=== PATIENT | male | born 1960 | race Caucasian/White ===

== ENCOUNTER 2021-02-09 12:44 | Emergency (ER) | payer OTHER, SELFPAY ==
[2021-02-09 12:53] VITALS: BP 131/81; PULSE 99; RESP 16; TEMP 36.8; O2SAT 95
--- NOTE | 2021-02-09 13:28 | ED.GENADULT ---
HPI - General Adult General Chief complaint: Ear Stated complaint: Sore Throat,Ear Pain Source: patient Mode of arrival: ambulatory Limitations: no limitations History of Present Illness HPI narrative: Patient is a 60-year-old male who presents to the [facility] with history pertinent for hypertension, hyperlipidemia, HIV, and diabetes mellitus for evaluation of right ear pain that began approximately 2 days ago. Additionally, patient reports left ear is draining goopy drainage, sore throat, and right watery eye. Sudafed, Tylenol, salt water gargles, and peroxide rinses and right ear provides mild to moderate relief. Pain increases with the use of hearing aids. Denies known exposure to sick contacts. Patient is vaccinated against Covid. Related Data Home Medications Medication Instructions Recorded Confirmed allopurinol 100 mg PO DAILY 02/09/21 02/09/21 atorvastatin 10 mg PO DAILY 02/09/21 02/09/21 cyclobenzaprine 5 mg PO DAILY 02/09/21 02/09/21 gabapentin 300 mg PO DAILY 02/09/21 02/09/21 hydralazine 25 mg PO DAILY 02/09/21 02/09/21 hydrocortisone acetate 25 mg RECTAL DAILY 02/09/21 02/09/21 olmesartan-hydrochlorothiazide 1 tablet PO DAILY 02/09/21 02/09/21 semaglutide [Ozempic] 2 mg SUBCUT DAILY 02/09/21 02/09/21 Allergies Allergy/AdvReac Type Severity Reaction Status Date / Time Sulfa (Sulfonamide Allergy Rash Verified 02/09/21 13:03 Antibiotics) Review of Systems Review of Systems: Pertinent negatives fever, chills, sweats, change in appetite, poor p.o. intake, malaise, headache, rhinorrhea, sinus problems, tinnitus, vertigo, lightheadedness, hearing loss, muffled hearing, drooling, difficulty swallowing, nausea, vomiting, vision changes, eye erythema/drainage/matting, cough, shortness of breath, lymphadenopathy, chest pain, heart palpitations, and heart murmur. [facility] Past Medical History Medical History (Updated 02/09/21 @ 13:43 by Facundo Curran, BACK SEWER, BC) Diabetes mellitus type 2 in nonobese HIV (human immunodeficiency virus infection) Hyperlipidemia Hypertension Comments I have reviewed and agree with the patient's past medical, surgical, social, and family hx as documented by the RN. There is no relevant family history pertinent to the presenting complaint. Exam Narrative: GENERAL: Well-appearing, well-nourished, and in no acute distress. HEAD: Normocephalic, atraumatic. No sinus tenderness or facial swelling appreciated. EYES: PERRLA and EOMI. No evidence of erythema, swelling, or drainage. ENT: Right TM bulging with marked erythema. Moderate amount of purulent fluid noted to right ear canal. Bilateral external ears. Left TM and left ear canal normal. No TM perforation. Nares clear, no rhinorrhea or epistaxis. Bilateral turbinates without erythema/ swelling. Mucous membranes moist and pink. Uvula is midline without erythema and swelling. No evidence of petechial rash, cobblestoning, lesions, ulcers, erythema, swelling, exudates, peritonsillar abscess, tenting, or drooling. Breath odor and voice normal. NECK: Supple. No Lymphadenopathy or nuchal rigidity appreciated. CHEST: Bilateral lung rogers are clear to auscultation. No respiratory distress. No evidence of cough or pleuritic cp upon examination. HEART: Regular rate and rhythm. No murmur, gallop, or rub heard. EXTREMITIES: Normal range of motion. No edema. SKIN: Warm, dry, no rash. NEURO: No focal deficits. Alert and oriented x3. Course Vital Signs Vital signs: Vital Signs Temperature 98.2 F 02/09/21 12:53 Pulse Rate 99 02/09/21 12:53 Respiratory Rate 16 02/09/21 12:53 Blood Pressure 131/81 02/09/21 12:53 Pulse Oximetry 95 02/09/21 12:53 Temperature 98.2 F 02/09/21 12:53 Pulse Rate 99 02/09/21 12:53 Respiratory Rate 16 02/09/21 12:53 Blood Pressure 131/81 02/09/21 12:53 Pulse Oximetry 95 02/09/21 12:53 Medical Decision Making Differential Diagnosis Differential Diagnosis
== END 2021-02-09 13:45 | disposition home or self-care (01) ==
PROVIDERS: Emergency Provider Nurse Practitioner Family; PCP Internal Medicine
DX: H66.002 Acute suppurative otitis media without spontaneous rupture of ear drum, left ear (principal); E11.9 Type 2 diabetes mellitus without complications; E78.5 Hyperlipidemia, unspecified; I10 Essential (primary) hypertension; Z21 Asymptomatic human immunodeficiency virus [HIV] infection status
CPT/HCPCS: 99213; G0463

== ENCOUNTER 2022-06-21 13:38 | Emergency (ER) | payer BC, SELFPAY ==
--- NOTE | ~2022-06-21 | XR_ITS ---
EXAMINATION: XR chest 2V DATE: 06/21/2022 14:28 INDICATION: Cough. TECHNIQUE: Frontal and lateral views of the chest were obtained. COMPARISON: Chest 2 views 06/15/2004 FINDINGS: There is no pneumonia, pleural effusion, or pneumothorax. The heart size is normal. There a re changes of anterior fusion procedure in cervical spine. There is mild chronic anterior wedging of T12 vertebral body. IMPRESSION: 1. No acute cardiopulmonary disease. Reviewed, dictated and finalized at location A. R OPERATOR
[2022-06-21 13:49] VITALS: BP 138/77; PULSE 100; RESP 14; TEMP 37.6; O2SAT 96
--- NOTE | 2022-06-21 14:24 | ED.URI ---
HPI - URI/Sore Throat General Chief Complaint: Upper Respiratory Infection Stated Complaint: cough Time Seen by Provider: 06/21/22 14:24 Source: patient Mode of arrival: ambulatory Limitations: no limitations History of Present Illness HPI Narrative: 62-year-old male presents with complaint of cough, chest congestion, nasal congestion, sinus pressure for the last month. Reports sore throat over the past few days. States that congestion and drainage went from clear to green. Afebrile. Reports some mild shortness of breath with exertion and when talking too much He feels winded. Reports chest pain only when coughing. Patient has history of anemia, low platelets. sees an oncologist for this and currently is not on any treatment for it. He does not feel that his anemia is the cause of his shortness of breath. He also has a history of hypertension and congestive heart failure. 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 He denies any lower extremity swelling. All systems reviewed and negative except as noted above. Related Data Home Medications Medication Instructions Recorded Confirmed allopurinol 100 mg tablet 100 mg PO DAILY 02/09/21 06/21/22 atorvastatin 10 mg tablet 10 mg PO DAILY 02/09/21 06/21/22 cyclobenzaprine 5 mg tablet 5 mg PO DAILY 02/09/21 06/21/22 gabapentin 300 mg capsule 300 mg PO DAILY 02/09/21 06/21/22 hydralazine 25 mg tablet 25 mg PO DAILY 02/09/21 06/21/22 olmesartan 40 1 tablet PO DAILY 02/09/21 06/21/22 mg-hydrochlorothiazide 25 mg tablet semaglutide 0.25 mg or 0.5 mg (2 2 mg subcut DAILY 02/09/21 06/21/22 mg/1.5 mL) subcutaneous pen injector (Ozempic) Klor-Con 10 06/21/22 Lasix 06/21/22 meloxicam 7.5 mg tablet mg 06/21/22 Allergies Allergy/AdvReac Type Severity Reaction Status Date / Time [id number] Reductase Allergy Cramping Verified 06/21/22 13:57 Inhibitor of the Muscles Sulfa (Sulfonamide Allergy Rash Verified 02/09/21 13:03 Antibiotics) Review of Systems Review of Systems: CONSTITUTIONAL: Denies fever, chills, or sweats. EYES: Denies visual changes, redness, or discharge. ENT: Reports rhinorrhea, congestion, sinus pressure, sore throat. Denies otalgia. CARDIOVASCULAR: Denies chest pain, palpitations, or edema. RESPIRATORY: Reports cough and dyspnea with exertion. GASTROINTESTINAL: Denies abdominal pain, nausea, vomiting, or diarrhea. GENITOURINARY: Denies dysuria or hematuria. SKIN: Denies rash or itching. MUSCULOSKELETAL: Denies back pain, joint pain, or myalgia. NEUROLOGIC: Denies headache, numbness, or weakness. PSYCHIATRIC: Denies anxiety or depression. All other systems reviewed are negative, except as documented in HPI. [facility], [facility] Past Medical History Medical History (Updated 06/21/22 @ 14:47 by Mariela Voss NP) Diabetes mellitus type 2 in nonobese HIV (human immunodeficiency virus infection) Hyperlipidemia Hypertension Comments At time of signature, agree with nursing past medical, surgical, social and family history. There is no relevant family history pertinent to the presenting complaint. Exam Narrative: GENERAL: This is a well-nourished, well-developed patient, in no apparent distress. HEAD: normocephalic, atraumatic. EYES: PERRL. Sclera clear/white. Vision is grossly intact. EARS: External ears normal, auditory canals clear and without drainage, TMs normal without perforation. Hearing grossly intact. NOSE: External nose normal with yellow nasal drainage, erythema and swelling to both nares. Bilateral maxillary sinus tenderness. THROAT: Mucous membranes moist, Erythema and postnasal drainage. NECK: Neck supple, non-tender without lymphadenopathy, masses or thyromegaly. CARDIOVASCULAR: Regular rate and rhythm without murmurs, gallops, or rubs. RESPIRATORY: Clear to auscultation. Breath sounds equal bilaterally. No wheezes, rales, or rhonchi. SKIN: warm, Dry, intact with no suspicious lesions or rash, good texture and turgor. NEURO:
== END 2022-06-21 14:52 | disposition home or self-care (01) ==
PROVIDERS: Emergency Provider Nurse Practitioner Family; PCP Internal Medicine
DX: J20.9 Acute bronchitis, unspecified (principal); J01.90 Acute sinusitis, unspecified; B96.89 Other specified bacterial agents as the cause of diseases classified elsewhere; B20 Human immunodeficiency virus [HIV] disease; E11.9 Type 2 diabetes mellitus without complications; E78.5 Hyperlipidemia, unspecified; I10 Essential (primary) hypertension; Z79.1 Long term (current) use of non-steroidal anti-inflammatories (NSAID)
CPT/HCPCS: 71046; 99213; G0463

== ENCOUNTER 2022-08-02 17:55 | Emergency (ER) | payer BC, SELFPAY ==
[2022-08-02 18:05] VITALS: BP 124/80; PULSE 78; RESP 20; TEMP 37.6; O2SAT 99
--- NOTE | 2022-08-02 18:19 | ED.URI ---
HPI - URI/Sore Throat General Chief Complaint: Upper Respiratory Infection Stated Complaint: sore throat Time Seen by Provider: 08/02/22 18:09 Source: patient Mode of arrival: ambulatory Limitations: no limitations History of Present Illness HPI Narrative: Patient presents today with a 2 day history of sore throat, body aches, chills, left ear pain, fatigue. Denies fever. Possible strep exposure at work. He takes Zyrtec daily. Currently rates his pain 09/28. Related Data Home Medications Medication Instructions Recorded Confirmed allopurinol 100 mg tablet 100 mg PO DAILY 02/09/21 08/02/22 atorvastatin 10 mg tablet 10 mg PO DAILY 02/09/21 08/02/22 cyclobenzaprine 5 mg tablet 5 mg PO DAILY 02/09/21 08/02/22 gabapentin 300 mg capsule 300 mg PO DAILY 02/09/21 08/02/22 hydralazine 25 mg tablet 25 mg PO DAILY 02/09/21 08/02/22 olmesartan 40 1 tablet PO DAILY 02/09/21 08/02/22 mg-hydrochlorothiazide 25 mg tablet semaglutide 0.25 mg or 0.5 mg (2 2 mg subcut DAILY 02/09/21 08/02/22 mg/1.5 mL) subcutaneous pen injector (Ozempic) meloxicam 7.5 mg tablet 7.5 mg PO DAILY 06/21/22 08/02/22 doravirine 100 mg tablet (Pifeltro) 100 mg PO DIRECTED 08/02/22 08/02/22 emtricitabine 200 mg-tenofovir 1 tablet PO DIRECTED 08/02/22 08/02/22 alafenamide fumarate 25 mg tablet (Descovy) Allergies Allergy/AdvReac Type Severity Reaction Status Date / Time [id number] Reductase Allergy Cramping Verified 08/02/22 17:59 Inhibitor of the Muscles Sulfa (Sulfonamide Allergy Rash Verified 08/02/22 17:59 Antibiotics) Review of Systems Review of Systems: CONSTITUTIONAL: Denies fever, or sweats.+ body aches, chills, fatigue EYES: Denies visual changes, redness, or discharge. ENT: Denies rhinorrhea. + congestion, sore throat, left ear pain CARDIOVASCULAR: Denies chest pain, palpitations, or edema. RESPIRATORY: Denies cough or dyspnea. GASTROINTESTINAL: Denies abdominal pain, nausea, vomiting, or diarrhea. GENITOURINARY: Denies dysuria or hematuria. SKIN: Denies rash, itching, or wounds. MUSCULOSKELETAL: Denies back pain, joint pain, or myalgia. NEUROLOGIC: Denies headache, numbness, tingling, or weakness. PSYCH: Denies depression or anxiety. [facility] Past Medical History Medical History Diabetes mellitus type 2 in nonobese HIV (human immunodeficiency virus infection) Hyperlipidemia Hypertension Comments At time of signature, I have reviewed and agree with nursing past medical, surgical, social and family history unless otherwise noted. Please see nursing chart for further information. There is no relevant family history pertinent to the presenting complaint Exam Narrative: GENERAL: Well-appearing, well-nourished, and in no acute distress. HEAD: Normocephalic, atraumatic. EYES: EOMI. No redness or drainage. Conjunctivae normal. ENT: Mucous membranes pink and moist. Nares clear. No rhinorrhea. TMs normal bilaterally. Throat normal. Uvula midline. NECK: Normal AROM. Supple. No lymphadenopathy. CHEST: No respiratory distress. Clear to auscultation. HEART: Regular rate and rhythm. No murmur appreciated. Normal peripheral pulses. EXTREMITIES: Normal range of motion. No edema. SKIN: Warm, dry, no rash. Capillary refill normal. Normal skin turgor. NEURO: No focal deficits. Alert and oriented x3. Gait steady. PSYCH: Normal affect. No signs of depression or anxiety. Course Course Level of Care: Express Care Visit Vital Signs Vital signs: Vital Signs Temperature 99.7 F H 08/02/22 18:05 Pulse Rate 78 08/02/22 18:05 Respiratory Rate 20 08/02/22 18:05 Blood Pressure 124/80 08/02/22 18:05 Pulse Oximetry 99 08/02/22 18:05 Temperature 99.7 F H 08/02/22 18:05 Pulse Rate 78 08/02/22 18:05 Respiratory Rate 20 08/02/22 18:05 Blood Pressure 124/80 08/02/22 18:05 Pulse Oximetry 99 08/02/22 18:05 Reviewed. Pt
== END 2022-08-02 18:50 | disposition home or self-care (01) ==
PROVIDERS: Emergency Provider Nurse Practitioner; PCP Internal Medicine
DX: B34.9 Viral infection, unspecified (principal); Z20.822 Contact with and (suspected) exposure to COVID-19; E11.9 Type 2 diabetes mellitus without complications; E78.5 Hyperlipidemia, unspecified; I10 Essential (primary) hypertension; Z21 Asymptomatic human immunodeficiency virus [HIV] infection status
CPT/HCPCS: 87081; 87426; 87804; 87880; 99213; C9803; G0463

== ENCOUNTER 2022-10-04 14:40 | Emergency (ER) | payer BC, SELFPAY ==
--- NOTE | ~2022-10-04 | XR_ITS ---
EXAMINATION: XR chest 2V DATE: 10/04/2022 15:17 INDICATION: Cough. TECHNIQUE: Frontal and lateral views of the chest were obtained. COMPARISON: Chest 2 views 06/21/2022 FINDINGS: There is no pneumonia, pleural effusion, or pneumothorax. The heart size is normal. There a re changes of anterior fusion procedure in cervical spine. There is mild chronic anterior wedging of multiple lower thoracic vertebral bodies. IMPRESSION: 1. No acute cardiopulmonary disease. Reviewed, dictated and finalized at location A.
[2022-10-04 14:47] VITALS: BP 142/79; PULSE 90; RESP 16; TEMP 37.1; O2SAT 99
[2022-10-04 14:48] VITALS: BP 142/79; PULSE 90; RESP 16; TEMP 38; O2SAT 99
--- NOTE | 2022-10-04 15:36 | ED.URI ---
HPI - URI/Sore Throat General Chief Complaint: Upper Respiratory Infection Stated Complaint: Ears Irritation/Cough Time Seen by Provider: 10/04/22 15:13 Source: patient Mode of arrival: ambulatory Limitations: no limitations History of Present Illness HPI Narrative: Patient with history of HIV and type 2 diabetes presents today complaining of 6 day history of productive cough, nasal drainage, shortness of breath, headache. States sputum was clear but has turned green today. He is also reporting some mid right back pain. He has been taking DayQuil, NyQuil, Mucinex, Tylenol and ibuprofen with some relief. History of pneumonia. Denies history of asthma or COPD. Related Data Home Medications Medication Instructions Recorded Confirmed allopurinol 100 mg tablet 100 mg PO DAILY 02/09/21 10/04/22 atorvastatin 10 mg tablet 10 mg PO DAILY 02/09/21 10/04/22 cyclobenzaprine 5 mg tablet 5 mg PO DAILY 02/09/21 10/04/22 gabapentin 300 mg capsule 300 mg PO DAILY 02/09/21 10/04/22 hydralazine 25 mg tablet 25 mg PO DAILY 02/09/21 10/04/22 olmesartan 40 1 tablet PO DAILY 02/09/21 10/04/22 mg-hydrochlorothiazide 25 mg tablet meloxicam 7.5 mg tablet 7.5 mg PO DAILY 06/21/22 10/04/22 doravirine 100 mg tablet (Pifeltro) 100 mg PO DIRECTED 08/02/22 10/04/22 emtricitabine 200 mg-tenofovir 1 tablet PO DIRECTED 08/02/22 10/04/22 alafenamide fumarate 25 mg tablet (Descovy) tirzepatide 5 mg/0.5 mL 5 mg subcut WEEKLY 10/04/22 10/04/22 subcutaneous pen injector (Mounjaro) Allergies Allergy/AdvReac Type Severity Reaction Status Date / Time [id number] Reductase Allergy Intermediate Cramping Verified 10/04/22 14:46 Inhibitor of the Muscles Sulfa (Sulfonamide Allergy Intermediate Rash Verified 10/04/22 14:46 Antibiotics) Review of Systems Review of Systems: CONSTITUTIONAL: Denies body aches, fever, chills, or sweats. EYES: Denies visual changes, redness, or discharge. ENT: Denies rhinorrhea, sore throat, or otalgia.+ congestion, nasal drainage CARDIOVASCULAR: Denies chest pain, palpitations, or edema. RESPIRATORY: + cough, shortness of breath. GASTROINTESTINAL: Denies abdominal pain, nausea, vomiting, or diarrhea. GENITOURINARY: Denies dysuria or hematuria. SKIN: Denies rash, itching, or wounds. MUSCULOSKELETAL: Denies joint pain, or myalgia.+ back pain NEUROLOGIC: Denies numbness, tingling, or weakness.+ headache PSYCH: Denies depression or anxiety. [facility] Past Medical History Medical History Diabetes mellitus type 2 in nonobese HIV (human immunodeficiency virus infection) Hyperlipidemia Hypertension Comments At time of signature, I have reviewed and agree with nursing past medical, surgical, social and family history unless otherwise noted. Please see nursing chart for further information. There is no relevant family history pertinent to the presenting complaint Exam Narrative: GENERAL: Mildly ill-appearing, well-nourished, and in no acute distress. HEAD: Normocephalic, atraumatic. EYES: EOMI. No redness or drainage. Conjunctivae normal. ENT: Mucous membranes pink and moist. Nares congested. No rhinorrhea. TMs normal bilaterally. Throat normal. Uvula midline. NECK: Normal AROM. Supple. No lymphadenopathy. CHEST: No respiratory distress. Clear to auscultation. HEART: Regular rate and rhythm. No murmur appreciated. Normal peripheral pulses. MUSCULOSKELETAL: No bony tenderness. EXTREMITIES: Normal range of motion. No edema. SKIN: Warm, dry, no rash. Capillary refill normal. Normal skin turgor. NEURO: No focal deficits. Alert and oriented x3. Gait steady. PSYCH: Normal affect. No signs of depression or anxiety. Course Course Level of Care: Express Care Visit Vital Signs Vital signs: Vital Signs Temperature 98.7 F 10/04/22 14:47 Pulse Rate 90 10/04/22 14:47 Respiratory Rate 16 10/04/22 14:47 Blood
== END 2022-10-04 15:52 | disposition home or self-care (01) ==
PROVIDERS: Emergency Provider Nurse Practitioner; PCP Internal Medicine
DX: R09.81 Nasal congestion (principal); R05.1 Acute cough; E11.9 Type 2 diabetes mellitus without complications; E78.5 Hyperlipidemia, unspecified; I10 Essential (primary) hypertension; Z21 Asymptomatic human immunodeficiency virus [HIV] infection status
CPT/HCPCS: 71046; 99213; G0463

== ENCOUNTER 2023-05-17 14:41 | Emergency (ER) | payer BC, SELFPAY ==
--- NOTE | ~2023-05-17 | XR_ITS ---
EXAMINATION: XR chest 2V Exam Date/Time: 05/17/2023 15:20 [facility] HISTORY: prod cough short of breath x 2 weeks non smoker Comparison: 10/04/2022. RESULT: Lines, tubes, and devices: Partially visualized cervical fusion hardware. Lungs and pleura: Emphysematous change, otherwise clear. Cardiomediastinal silhouette: Stable. Other: No acute osseous or upper abdominal finding. IMPRESSION: No acute cardiopulmonary process. Reviewed, dictated and finalized at location K. N CARPENTER
--- NOTE | 2023-05-17 14:44 | ED.URI ---
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 States he does uses inhaler on a regular basis last time he used it was this morning. Denies any chest pain or new shortness of breath. Onset (ago): week(s) (2) Related Data Home Medications Medication Instructions Recorded Confirmed allopurinol 100 mg tablet 100 mg PO DAILY 02/09/21 05/17/23 gabapentin 300 mg capsule 300 mg PO DAILY 02/09/21 05/17/23 hydralazine 25 mg tablet 25 mg PO DAILY 02/09/21 05/17/23 olmesartan 40 1 tablet PO DAILY 02/09/21 05/17/23 mg-hydrochlorothiazide 25 mg tablet meloxicam 7.5 mg tablet 7.5 mg PO DAILY 06/21/22 05/17/23 doravirine 100 mg tablet (Pifeltro) 100 mg PO DIRECTED 08/02/22 05/17/23 emtricitabine 200 mg-tenofovir 1 tablet PO DIRECTED 08/02/22 05/17/23 alafenamide fumarate 25 mg tablet (Descovy) tirzepatide 5 mg/0.5 mL 5 mg subcut WEEKLY 10/04/22 05/17/23 subcutaneous pen injector (Kirk) carvedilol 6.25 mg tablet 6.25 mg PO BID 05/17/23 05/17/23 cyclobenzaprine 10 mg tablet 10 mg PO BID PRN Pain 05/17/23 05/17/23 doravirine 100 mg tablet (Pifeltro) 100 mg PO DAILY 05/17/23 05/17/23 ezetimibe 10 mg tablet 10 mg PO DAILY 05/17/23 05/17/23 furosemide 20 mg tablet 20 mg PO DAILY 05/17/23 05/17/23 potassium chloride 10 mEq 10 meq PO DAILY 05/17/23 05/17/23 tablet,extended release tramadol 50 mg tablet 50 mg PO DAILY 05/17/23 05/17/23 umeclidinium 62.5 mcg-vilanterol 1 inh inhalation DAILY 05/17/23 05/17/23 25 mcg/actuation powdr for inhalation (Anoro Ellipta) Allergies Allergy/AdvReac Type Severity Reaction Status Date / Time [id number] Reductase Allergy Intermediate Cramping Verified 05/17/23 15:37 Inhibitor of the Muscles Sulfa (Sulfonamide Allergy Intermediate Rash Verified 05/17/23 15:37 Antibiotics) Review of Systems Review of Systems: All systems reviewed & are unremarkable except as noted in HPI and below Constitutional: Constitutional: Reports no additional constitutional complaints Eyes: Eyes: Reports no additional eye complaints ENT: Reports system reviewed and no additional complaints, except as documented Cardiovascular: Cardiovascular: Reports no additional cardiovascular complaints, Denies chest pain and Denies dyspnea Respiratory: Respiratory: Reports as per HPI, Denies chest congestion, Reports cough and Denies dyspnea Gastrointestinal: Gastrointestinal: Reports no additional gastrointestinal complaints, Denies abdominal pain, Denies nausea and Denies vomiting Musculoskeletal: Musculoskeletal: Reports no additional musculoskeletal complaints Integumentary/Breasts: Skin/Breast: Reports system reviewed and no additional complaints, except as docu Neurologic: Reports system reviewed and no additional complaints, except as documented Psychiatric: Psychiatric: Reports no additional psychiatric complaints Allergic/Immunologic: Allergic/Immunologic: Reports no additional allergic/immunologic complaints PMFSH Past Medical History Medical History Diabetes mellitus type 2 in nonobese HIV (human immunodeficiency virus infection) Hyperlipidemia Hypertension Comments At the time of my signature, I reviewed and agree with the nursing past medical, surgical, social, and family history. There is no relevant family history pertinent to the patient complaint. Exam Const: General: cooperative, healthy appearing, comfortable, no acute distress, well developed, alert and well nourished Nutrit
[2023-05-17 14:54] VITALS: BP 158/80; PULSE 105; RESP 16; TEMP 37.7; O2SAT 93
[2023-05-17 15:00] VITALS: RESP 30; O2SAT 93
[2023-05-17 15:11] VITALS: BP 158/80; PULSE 105; RESP 16; TEMP 37.7; O2SAT 93
[2023-05-17 15:38] LABS: Glucose Point of Care 138 mg/dl (65-105)
== END 2023-05-17 15:50 | disposition home or self-care (01) ==
PROVIDERS: Emergency Provider Nurse Practitioner; PCP Internal Medicine
DX: J20.9 Acute bronchitis, unspecified (principal); E11.9 Type 2 diabetes mellitus without complications; E78.5 Hyperlipidemia, unspecified; I10 Essential (primary) hypertension; Z21 Asymptomatic human immunodeficiency virus [HIV] infection status
CPT/HCPCS: 71046; 82948; 99213; G0463